=== PATIENT | male | born 1955 | race Caucasian/White ===

== ENCOUNTER 2017-11-12 23:17 | Emergency (ER) | payer BC, OTHER ==
[~2017-11-12] VITALS: Ht 175.3 cm; Wt 64.0 kg
[2017-11-12 23:19] VITALS: TEMP 36.6; Ht 175.3 cm; Wt 64.0 kg
[2017-11-12] MEDS ORDERED: ONDANSETRON INJ 2 MG/ML 2 ML VIAL IV STA (23:28)
[2017-11-12] MEDS ORDERED: MoRPHine SULFATE 4 MG/ML 1 ML CARP\\VIAL IV STA (23:28)
[2017-11-12] MEDS ORDERED: SODIUM CHLORIDE 0.9% 1000ML 1,000 ML IV STA (23:35)
[2017-11-12] MEDS ORDERED: FENTANYL CITRATE INJ 50 MCG/1 ML 2 ML VIAL IV STA (23:39)
[2017-11-12] MEDS ORDERED: IBUP-1050 PO (23:51)
[2017-11-13] MEDS ORDERED: VANCOMYCIN IV STA (00:01)
[2017-11-13] MEDS ORDERED: CEFEPIME IV STA (00:01)
[2017-11-13] MEDS ORDERED: SODIUM CHLORIDE 0.9% IV STA (00:01)
[2017-11-13] MEDS ORDERED: DEXTROSE 5% IV STA (00:01)
[2017-11-13 00:09] LABS: ISTAT CREATININE 0.9 mg/dl (0.6-1.3); ISTAT IONIZED CALCIUM 1.17 mmol/l (1.12-1.32); ISTAT POTASSIUM 4.4 mEq/L (3.3-5.0)
[2017-11-13 00:13] LABS: BASO % 0.2 %; BASO ABS # 0.02 K/uL (0-0.2); EOS % 1.4 %; EOS ABS # 0.11 K/uL (0-0.5); HEMATOCRIT 39.4 % (42-52); HEMOGLOBIN 14.3 g/dL (14.0-18.0); IG# 0.01 K/uL (0.00-0.02); LYMPH % 14.9 %; LYMPH ABS # 1.21 K/uL (1.2-3.4); MEAN CELL VOLUME 82.9 fL (80-100); MEAN CORPUSCULAR HEMOGLOBIN 30.1 pg (25-34); MEAN CORPUSCULAR HGB CONC 36.3 g/dl (32-36); MEAN PLATELET VOLUME 10.4 fL (7.4-10.4); MONO % 7.5 %; MONO ABS # 0.61 K/uL (0.11-0.59); NEUT % 75.9 %; NEUT ABS # 6.18 K/uL (1.4-6.5); PLATELET COUNT 209 K/uL (130-400); RED CELL DISTRIBUTION WIDTH CV 13.1 % (11.5-14.5); RED CELL DISTRIBUTION WIDTH SD 39.7 fL (36.4-46.3); WHITE BLOOD COUNT 8.14 K/uL (4.8-10.8)
[2017-11-13] MEDS ORDERED: VANCOMYCIN CONSULT ACTIVE PRN (00:15)
[2017-11-13 00:16] VITALS: O2SAT 98
[2017-11-13 00:35] LABS: ALBUMIN 3.9 gm/dl (3.4-5.0); ALT/SGPT 39 U/L (12-78); AST/SGOT 35 U/L (15-37); BLOOD UREA NITROGEN 16 mg/dl (7-18); CALCIUM 8.8 mg/dl (8.5-10.1); CARBON DIOXIDE 27 mmol/L (21-32); CREATININE 0.91 mg/dl (0.60-1.40); GLUCOSE 88 mg/dl (70-99); POTASSIUM 4.1 mmol/L (3.5-5.1); SODIUM 137 mmol/L (136-145); URIC ACID 5.8 mg/dl (2.6-7.2)
[2017-11-13 00:37] LABS: ALKALINE PHOSPHATASE 65 U/L (45-117)
[2017-11-13] MEDS ORDERED: OPTIRAY 320 IV PRN (00:45)
[2017-11-13] MEDS ORDERED: FENTANYL CITRATE INJ 50 MCG/1 ML 2 ML VIAL IV STA (01:06)
[2017-11-13] MEDS ORDERED: OXYCODONE HCL IR 5 MG TAB (IMMEDIATE RELEASE) PO STA (01:21)
[2017-11-13] MEDS ORDERED: AMOXICIL/CLAVU 875MG HOME PACK PO ONE (01:45)
[2017-11-13] MEDS ORDERED: ONDANSETRON HOME PACK 4MG OD TAB PO ONE (01:45)
[2017-11-13] MEDS ORDERED: OXYCODONE IR HOME PACK PO ONE (01:45)
[2017-11-13] MEDS ORDERED: HYDROmorphone INJ 0.5 MG/0.5 ML SYR IV STA (01:46)
--- NOTE | 2017-11-13 02:41 | EMERGENCY ROOM VISIT NOTE ---
History First contact with patient: 23:24 Chief Complaint: FOOT PAIN Stated Complaint: RIGHT FOOT/TOE SWOLLEN History of Present Illness The patient is a 62 year old male who presents to the Emergency Room with complaints of severe right foot pain that started in his second toe that has spread throughout the foot. 2 years ago he had osteomyelitis. He saw Dr. Ames and Dr. Stone for this. He was started on Keflex and this did not work and then he thinks he might of been on a fluoroquinolone and then something else but he is unsure. He was on the medication for almost 4 months. 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 He has no active medical problems. Patient complains of subjective fever and chills and achiness to his right calf. Pain currently 9 out of 10. Worse with movement and better with rest. No history of gout. No direct trauma to the area. Patient does have horrible toenails he states. Patient denies chest pain, dyspnea, cough, congestion, abdominal pain, numbness , tingling, IV drug abuse. Review of Systems An 10 system review of systems was completed with positives and pertinent negatives listed in the HPI. Past Medical/Surgical History Ostial myelitis left foot second toe Social History Smoking Status: Never Smoker Alcohol Use: occasionally Drug Use: none Marital Status: Housing Status: lives with family Occupation Status: employed Current/Historical Medications Scheduled PRN Ibuprofen (Advil), 400-600 MG PO Q6H PRN for Pain Physical Exam Vital Signs Date Time Temp Pulse Resp B/P (MAP) Pulse Ox O2 Delivery O2 Flow Rate FiO2 11/13/17 02:00 46 16 165/92 98 Room Air 11/13/17 01:28 53 16 133/80 97 Room Air 11/13/17 00:16 98 Room Air 11/12/17 23:38 50 16 113/79 97 Room Air 11/12/17 23:19 36.6 58 18 175/82 99 Room Air Physical Exam VITALS: Vitals are noted on the nurse's note and reviewed by myself. Vital signs hypertensive GENERAL: Pleasant male who appears in pain, in no acute distress, nondiaphoretic , well-developed well-nourished. SKIN: Capillary reflex less than 2 seconds. HEENT: Normocephalic. PERRLA. EOMI. Nares patent. Mucous membranes moist. Neck is supple without nuchal rigidity. HEART: Regular rate and rhythm without murmurs gallops or rubs. LUNGS: Clear to auscultation bilaterally without wheezes, rales or rhonchi. No retractions or accessory muscle use. ABDOMEN: Positive bowel sounds x 4. Normal tympanic percussion. Soft, nontender, without masses or organomegaly. Liu sign negative. No guarding or rebound tenderness. MUSCULOSKELETAL: No gross musculoskeletal defects. Right pedal edema. Right calf tenderness. Right foot slightly erythematous and edematous with increasing erythema and edema to the toes with the second toe being the worst with lymphangitis of the foot to the base of the ankle. The foot is quite warm to touch. Pedal pulses +2 equal and present bilaterally. Sensation is intact. Right ankle nontender to palpation. NEURO: Patient was alert and oriented to person place and time. Normal sensation to light and sharp touch. No focal neurological deficits. Medical Decision & Procedures Laboratory Results 11/12/17 23:50 Red Blood Count 4.75, Mean Corpuscular Volume 82.9, Mean Corpuscular Hemoglobin 30.1, Mean Corpuscular Hemoglobin Concent 36.3, Mean Platelet Volume 10.4, Neutrophils (%) (Auto) 75.9, Lymphocytes (%) (Auto) 14.9, Monocytes (%) (Auto) 7.5, Eosinophils (%) (Auto) 1.4, Basophils (%) (Auto) 0.2, Neutrophils # (Auto) 6.18, Lymphocytes # (Auto) 1.21, Monocytes # (Auto) 0.61, Eosinophils # (Auto) 0.11, Basophils # (Auto) 0.02 11/12/17 23:50 Test 11/12/17 23:50 11/12/17 23:51 11/12/17 23:56 White Blood Count 8.14 K/uL (4.8-10.8) Red Blood Count 4.75 M/uL (4.7-6.1) Hemoglobin 14.3 g/dL (14.0-18.0) Hematocrit 39.4 % (42-52) Mean Corpuscular Volume 82.9 fL (80-100) Mean Corpuscular Hemoglobin 30.1 pg (25-34) Mean Corpuscular Hemoglobin Concent 36.3 g/dl (32-36) Platelet Count 209 K/uL (130-400) Mean Platelet Volume 10.4 fL (7.4-10.4) Neutrophils (%) (Auto) 75.9 % Lymphocytes (%) (Auto) 14.9 % Monocytes (%) (Auto) 7.5 % Eosinophils (%) (Auto) 1.4 % Basophils (%) (Auto) 0.2 % Neutrophils # (Auto) 6.18 K/uL (1.4-6.5) Lymphocytes # (Auto) 1.21 K/uL (1.2-3.4) Monocytes # (Auto) 0.61 K/uL (0.11-0.59) Eosinophils # (Auto) 0.11 K/uL (0-0.5) Basophils # (Auto) 0.02 K/uL (0-0.2) RDW Standard Deviation 39.7 fL (36.4-46.3) RDW Coefficient of Variation 13.1 % (11.5-14.5) Immature Granulocyte % (Auto) 0.1 % Immature Granulocyte # (Auto) 0.01 K/uL (0.00-0.02) Erythrocyte Sedimentation Rate 2 mm/hr (0-14) Prothrombin Time 10.7 SECONDS (9.0-12.0) Prothromb Time International Ratio 1.0 (0.9-1.1) Activated Partial Thromboplast Time 27.0 SECONDS (21.0-31.0) Partial Thromboplastin Ratio 1.0 Est Creatinine Clear Calc Drug Dose 78.1 ml/min Estimated GFR () 105.8 Estimated GFR (Non- 91.3 BUN/Creatinine Ratio 17.6 (10-20) Uric Acid 5.8 mg/dl (2.6-7.2) Calcium Level 8.8 mg/dl (8.5-10.1) Total Bilirubin 0.8 mg/dl (0.2-1) Aspartate Amino Transf (AST/SGOT) 35 U/L (15-37) Alanine Aminotransferase (ALT/SGPT) 39 U/L (12-78) Alkaline Phosphatase 65 U/L (45-117) Total Creatine Kinase 236 U/L (39-308) C-Reactive Protein < 0.29 mg/dl (0-0.29) Total Protein 7.0 gm/dl (6.4-8.2) Albumin 3.9 gm/dl (3.4-5.0) Globulin 3.1 gm/dl (2.5-4.0) Albumin/Globulin Ratio 1.3 (0.9-2) Procalcitonin < 0.05 ng/ml (0-0.5) Bedside Hemoglobin 12.9 g/dl (14.0-18.0) Bedside Hematocrit 38 % (42-52) Bedside Sodium 138 mEq/L (135-144) Bedside Potassium 4.4 mEq/L (3.3-5.0) Bedside Chloride 100 mEq/L (101-112) Bedside Total CO2 29 mEq/l (24-31) Anion Gap 14.0 mmol/L (16-25) Bedside Blood Urea Nitrogen 18 mg/dl (7-18) Bedside Creatinine 0.9 mg/dl (0.6-1.3) Bedside Glucose (other) 93 mg/dl (70-99) Bedside Ionized Calcium (Antoinette) 1.17 mmol/l (1.12-1.32) Bedside Lactic Acid Venous 1.06 mmol/L (0.90-1.70) Medications Administered Medications (Trade) Dose Ordered Sig/Teja Route Start Time Stop Time Status Last Admin Dose Admin Ondansetron HCl (Zofran Inj) 4 mg NOW STAT IV 11/12/17 23:28 11/12/17 23:34 DC 11/13/17 00:08 4 MG Sodium Chloride 1,000 ml @ 999 mls/hr Q1H1M STAT IV 11/12/17 23:35 11/13/17 00:35 DC 11/13/17 00:14 999 MLS/HR Fentanyl Citrate (Fentanyl Inj) 50 mcg NOW STAT IV 11/12/17 23:39 11/12/17 23:41 DC 11/13/17 00:08 50 MCG Vancomycin HCl 1300 mg/Sodium Chloride 526 ml @ 200 mls/hr ONE STAT IV 11/13/17 00:01 11/13/17 02:38 DC 11/13/17 00:47 200 MLS/HR Cefepime HCl 2 mg/ Dextrose 100.022 ml @ 200 mls/ hr NOW STAT IV 11/13/17 00:01 11/13/17 00:30 DC 11/13/17 00:47 200 MLS/HR Fentanyl Citrate (Fentanyl Inj) 50 mcg NOW STAT IV 11/13/17 01:06 4/2/18 01:07 DC 11/13/17 01:20 50 MCG Oxycodone HCl (Roxicodone Immediate Rel Tab) 5 mg NOW STAT PO 11/13/17 01:21 11/13/17 01:22 DC 11/13/17 01:26 5 MG Hydromorphone HCl (Dilaudid Inj) 0.5 mg NOW STAT IV 11/13/17 01:46 11/13/17 01:47 DC 11/13/17 02:00 0.5 MG ED Course Prior records reviewed and summarized as above. Triage Nursing notes reviewed. Additional history obtained from family. The patient's history was concerning for swelling and redness of the skin. Differential diagnosis: Etiologies such as gout, osteomyelitis, cellulitis, abscess, MRSA infection, DVT , necrotizing fasciitis, dermatitis, drug eruption, as well as others were entertained.. Physical examination: As above ER treatment provided: Fentanyl, Zofran, vancomycin, cefepime On reassessment the patient felt better. Diagnostics interpreted by me: The labs revealed no leukocytosis. Negative lactic acid. Negative ESR and sed rate. Blood cultures pending. Normal uric acid Stable H&H. Imaging studies: Foot x-ray with no acute fracture, dislocation or effusion per my interpretation CT of the foot negative for osteomyelitis per stat radiology Ultrasound of the leg negative for DVT per stat radiology This appears to be right foot cellulitis with possible developing osteomyelitis. No evidence on CT imaging. Patient states he cannot tolerate fluoroquinolones and Keflex has not worked in the past. Patient was started on antibiotics. He was advised to follow-up today with Dr. Ames for further evaluation and treatment for his right foot pain and swelling. She was advised no running or strenuous activity on the foot until cleared by orthopedics and his family care doctor.. Patient was neurovascularly and neurologically intact. He is well-appearing. He is afebrile nontoxic. He has a history of osteo-myelitis. 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 Patient was offered admission and declined. I felt this is reasonable. He was afebrile nontoxic. By the evaluation outlined above emergent etiologies such as abscess, necrotizing fasciitis, DVT, as well as others were deemed relatively unlikely. The pt informed about the findings as listed above. All questions were answered and pleased with the treatment. Return instructions were outlined and the patient was discharged in stable condition. Outpatient prescription management: Augmentin, OxyIR Referral: The patient was referred back to primary care physician and orthopedics for follow-up in 24-48 hours for a recheck of the current condition. Case reviewed with my attending The chart was completed utilizing [employer] ? Speech voice recognition software. Grammatical errors, random word insertions, pronoun errors, and incomplete sentences are an occassional consequence of this system due to software limitations, ambient noise, and hardware issues. Any formal questions or concerns about the content, text, or information contained within the body of this dictation should be directly addressed to the physician child nutrition assistant for clarification. Medical Decision As above [place] Drug Monitoring Program Search Results: patient reviewed within database, no issues identified Medication Reconcilliation Current Medication List: was personally reviewed by me Blood Pressure Screening Patient's blood pressure: Elevated blood pressure Blood pressure disposition: Elevated BP felt to be situational Impression Primary Impression: Cellulitis of right foot Departure Information Dispostion Home / Self-Care Condition GOOD Referrals Ruddy Garcia M.D. (PCP) Patient Instructions My [facility] Additional Instructions DO NOT drive, drink alcohol, operate machinery, or perform dangerous activities today. You were given medications in the ER that can affect your ability to safely function or operate a vehicle. Amoxicillin Clavulanate (Augmentin) 875mg: Take one pill twice daily for 10 days for your infection. All antibiotics can cause diarrhea. If this occurs and you feel worse or it does not resolve in 1-2 days follow up with your doctor or return to the Emergency Department as this could be signs of serious underlying problems. Any medication can cause an allergic reaction, stop the pills immediately and return to the ER for rash, hives, breathing difficulties, or swelling. Oxycodone (OxyIR) 5mg: Take 1-2 pills every four hours for breakthrough pain. Avoid alcohol, operating machinery or dangerous equipment, working on ladders or roofs, DRIVING, or situations where being under the influence may be dangerous. It is recommended to use an [id number] stool softener such as Colace, 100mg twice daily while taking this medication to avoid constipation. Ibuprofen(Motrin, Advil) may be used for fever or pain. Use 600mg every six hours as needed. Take with food. Avoid using more than 2400mg in a 24 hour period. Do not use 2400mg per day for more than three consecutive days without physician direction. Prolonged inappropriate use can lead to stomach upset or ulcers. This medication can be taken if you need to drive, work, or perform activities which may be dangerous when taking narcotic pain medication. (AND/OR) Acetaminophen(Tylenol) may be used for fever or pain. Use 1000mg every six hours as needed. Avoid using more than 3000mg in a 24 hour period. This medication can be taken if you need to drive, work, or perform activities which may be dangerous when taking narcotic pain medication. Rest and elevate your leg. Avoid anything tight on your foot. Continue current medications. Return to the ER immediately for any numbness, tingling, severe pain, extreme swelling in the extremity or as needed. Call your orthopedics today for follow-up within 24 hours. Recommend MRI imaging of the foot for rule out osteomyelitis.
[2017-11-13] MEDS ORDERED: OXYC1TAB3 PO (03:03)
[2017-11-13] MEDS ORDERED: AMOX875T PO (03:03)
[2017-11-13] MEDS ORDERED: HYDROmorphone INJ 1 MG/ML SYR IV STA (03:25)
[2017-11-13 04:00] VITALS: BP 121/79; PULSE 60; O2SAT 98
--- NOTE | 2017-11-13 06:38 | DIAGNOSTIC IMAGING REPORT ---
ULTRASOUND R VENOUS DOPP LOWER EXT UNILAT CLINICAL HISTORY: right foot pain/swelling COMPARISON STUDY: No previous studies for comparison. FINDINGS: Real-time and color flow Doppler imaging were performed. Flow was seen within the femoral, popliteal and calf veins with no intraluminal thrombus demonstrated. The saphenous vein is patent. IMPRESSION: No evidence of right lower extremity DVT. Electronically signed by: Bk Arita M.D. 11/13/2017 6:36 AM Dictated Date/Time: 11/13/2017 6:36 AM
--- NOTE | 2017-11-13 07:03 | DIAGNOSTIC IMAGING REPORT ---
R LOWER EXTREMITY WITH CLINICAL HISTORY: 62 years-old Male presenting with severe right foot pain, ? OM right 2nd toe, hx of OM in left ft, right foot pain and swelling, redness, evaluate for osteomyelitis. TECHNIQUE: Multidetector CT of the right foot was performed after the administration of intravenous contrast. 3-D volumetric and/or maximum intensity projection (MIP) images were subsequently reconstructed for review. IV contrast: 110 mL of Optiray 320. A dose lowering technique was used consistent with the principles of ALARA (as low as reasonably achievable). COMPARISON: Plain radiographs from 11/12/2017. CT DOSE (mGy.cm): The estimated cumulative dose is 319.69 mGy.cm. FINDINGS: Production Support Supervisor topogram: Unremarkable. No acute fracture or malalignment. No osseous erosion or periosteal reaction. Subcutaneous edema noted diffusely in the foot though most prominently in the forefoot and toes. No rim-enhancing fluid collection to suggest abscess. No soft tissue emphysema. Patent vasculature. IMPRESSION: No CT evidence of osteomyelitis. Notably, MR is more sensitive for this diagnosis. Nonspecific subcutaneous edema could indicate cellulitis in the appropriate clinical setting. Electronically signed by: Ruddy Villa M.D. 11/13/2017 7:02 AM Dictated Date/Time: 11/13/2017 6:50 AM
--- NOTE | 2017-11-13 07:05 | DIAGNOSTIC IMAGING REPORT ---
RIGHT FOOT 3 VIEWS HISTORY: severe right foot/2nd toe pain, hx OM COMPARISON: None. FINDINGS: Mild soft tissue swelling within the forefoot. Mild vascular calcifications. No fracture or dislocation. No cortical destruction to suggest osteomyelitis. No radiopaque foreign bodies. IMPRESSION: Mild soft tissue swelling within the forefoot. No radiographic evidence for osteomyelitis. Electronically signed by: Shaquille Barbour M.D. 11/13/2017 7:04 AM Dictated Date/Time: 11/13/2017 7:02 AM
== END 2017-11-13 04:08 | disposition home or self-care (01) ==
LOC: C.EDB 23:18
DX: L03.115 Cellulitis of right lower limb (principal)

== ENCOUNTER → 2017-11-20 | Outpatient (CLI) | payer OTHER ==
[~2017-11-20] MED LIST: AMOX875T PO; IBUP-1050 PO; OXYC1TAB3 PO
== END | disposition home or self-care (01) ==
LOC: C.LABBC 14:17
PROVIDERS: ATTEND Orthopaedic Surgery
DX: L08.9 Local infection of the skin and subcutaneous tissue, unspecified (principal)